=== PATIENT | female | born 1955 | race Caucasian/White ===

== ENCOUNTER 2017-06-01 13:01 | Inpatient (IN) | payer BC ==
[~2017-06-01] VITALS: Ht 162.6 cm; Wt 98.0 kg
--- NOTE | ~2017-06-01 | 2DMMODE ---
[facility] [address] [place] [address] 2 D/M-MODE ECHOCARDIOGRAM Name: AMBROSE PEARSON Room #: 310-P [facility] IN ..#: [id number] Admission: 06/01/17 Attend Phys: Elizabeth Weaver Discharge: Date of : 53 Date of Service: 06/02/17 1031 Report #: [id number] THIS REPORT FOR: //name// APPROVED REPORT Study performed: 06/02/2017 08:31:01 EXAM: Comprehensive 2D, Doppler, and color-flow Echocardiogram Patient Location: Bedside Room #: 310 Status: stat Other Information Study Quality: Adequate Indications Syncope Chest Pain 2D Dimensions RVDd: 32.84 mm LVEF(%): 2.01 (>50%) IVSd: 9.92 (7-11mm) LVOT Diam: 19.58 (18-24mm) LVDd: 26.31 mm PWd: 31.93 (7-11mm) Ascending Ao: 33.82 (22-36mm) LVDs: 26.10 (25-40mm) Aortic Root: 32.28 mm Gonzalez's LVEF: 2.01 % Volumes Left Atrial Volume (Systole) Single Plane 4CH: 43.99 mL Single Plane 2CH: 60.51 mL LA ESV Index: 28.00 mL/m2 Aortic Valve AoV Peak Sarabjit.: 1.96 m/s AO Peak Gr.: 15.31 mmHg LVOT Max P.47 mmHg LVOT Max V: 1.62 m/s ODALYS Vmax: 2.49 cm2 Mitral Valve E/A Ratio: 0.6 MVA Planimetry: 1311.82 mm2 MV Decel. Time: 233.66 ms MV E Max Sarabjit.: 0.78 m/s MV A Sarabjit.: 1.22 m/s MV PHT: 67.76 ms [facility] [address] [place] [address] 2 D/M-MODE ECHOCARDIOGRAM Name: AMBROSE PEARSON Room #: 310-P [facility] IN ..#: [id number] Admission: 06/01/17 Attend Phys: Elizabeth Weaver Discharge: Date of : 53 Date of Service: 06/02/17 1031 Report #: [id number] IVRT: 101.50 ms Pulmonary Vein P Vein S: 0.70 m/s P Vein A: 0.34 m/s P Vein D: 0.38 m/s P Vein A Dur.: 133.8 msec P Vein S/D Ratio: 1.84 Tricuspid Valve TR Peak Sarabjit.: 1.99 m/s RAP Estimate: 5.00 mmHg TR Peak Gr.: 15.81 mmHg PA Pressure: 21.00 mmHg Shunt Evaluation QP/QS: 3.00 Left Ventricle The left ventricle is normal size. There is normal LV segmental wall motion. There is normal left ventricular wall thickness. The left ventricular systolic function is normal. The left ventricular ejection fraction is within the normal range. LVEF is 65%. Grade I - abnormal relaxation pattern. Right Ventricle The right ventricle is normal size. The right ventricular systolic function is normal. Atria The left atrium size is normal. The right atrium size is normal. Aortic Valve The aortic valve is normal in structure. Trace aortic regurgitation. There is no aortic valvular stenosis. Mitral Valve The mitral valve is normal in structure. There is no mitral valve regurgitation noted. No evidence of mitral valve stenosis. Tricuspid Valve The tricuspid valve is normal in structure. There is trace tricuspid regurgitation. The right atrial pressure is estimated at 5 mmHg. There is no pulmonary hypertension with an estimated PAP of 21 mmHg. Pulmonic Valve The pulmonary valve is normal in structure. There is no pulmonic [address] [address] 2 D/M-MODE ECHOCARDIOGRAM Name: AMBROSE PEARSON Room #: 310-P [facility] IN [facility]#: [id number] Admission: 06/01/17 Attend Phys: Elizabeth Weaver Discharge: Date of : 53 Date of Service: 06/02/17 1031 Report #: [id number] valvular regurgitation. Great Vessels The aortic root is normal in size. IVC is normal in size and collapses >50% with inspiration. Pericardium There is no pericardial effusion. <Conclusion> There is normal left ventricular wall thickness. The left ventricular systolic function is normal. The left ventricular ejection fraction is within the normal range. LVEF is 65%. Grade I - abnormal relaxation pattern. The left atrium size is normal. There is no aortic valvular stenosis. There is no mitral valve regurgitation noted. There is no pericardial effusion. <ELECTRONICALLY SIGNED> By: Rishabh Crouch MD, FACC 06/02/17 1031 1031 1031 Rishabh Crouch MD, FACC /INF
--- NOTE | ~2017-06-01 | EKG ---
[address] [address] ELECTROCARDIOGRAM REPORT Name: AMBROSE PEARSON Room #: 310-P ADM IN M.R.#: [id number] Admission: 06/01/17 Attend Phys: Remy Fox MD Discharge: Date of : 53 Report #: [id number] THIS REPORT FOR: //name// [facility] ED Test Date: 2017-06-01 Test Time: 13:13:07 Pat Name: AMBROSE PEARSON Department: Room: 310 Gender: F P[employer]: [id number] : [id number] Requested By: Matt Gonsalez Order Number: [id number] MD: Trevin Jade Measurements Intervals [place] Rate: 80 P: 20 WA: 180 QRS: -7 QRSD: 85 T: 85 QT: 380 QTc: 439 Interpretive Statements Sinus rhythm Inferior infarct, old Anterior infarct, old Compared to ECG 07/08/2008 11:33:59 Poor R-wave progression no longer present Electronically Signed On 06-02-2017 9:25:16 CDT by Trevin Jade [email or web address] <ELECTRONICALLY SIGNED> By: Trevin Jade MD 06/02/17 0925 1313 1313 Trevin Jade MD /GLENN
[2017-06-01 13:02] VITALS: BP 152/82
[2017-06-01] MEDS ORDERED: PAXIL20 MG PO (13:10)
[2017-06-01] MEDS ORDERED: WELLBUTRIN 100100 MG PO (13:10)
[2017-06-01] MEDS ORDERED: VICTOZA0.6 MG/0.1 SUBQ (13:10)
[2017-06-01] MEDS ORDERED: METFORMIN HCL500 MG PO (13:10)
[2017-06-01] MEDS ORDERED: TOPROL XL100 MG PO (13:11)
[2017-06-01] MEDS ORDERED: ZOCOR20 MG PO (13:11)
[2017-06-01] MEDS ORDERED: LISINOPRIL10 MG PO (13:11)
[2017-06-01] MEDS ORDERED: ASPIR 8181 MG PO (13:12)
[2017-06-01] MEDS ORDERED: B12INJ IM (13:12)
[2017-06-01] MEDS ORDERED: VITAMIN D31000 UNI2 PO (13:12)
[2017-06-01 13:19] LABS: ABSOLUTE NEUTROPHILS 8.7 thou/uL (1.4-8.2); BASOPHILS 0.7 % (0.0-2.0); EOSINOPHILS 4.6 % (0.0-3.0); HEMATOCRIT 44.9 % (37.0-47.0); HEMOGLOBIN 15.7 gm/dL (12.0-15.0); LYMPHOCYTES 20.8 % (24.0-44.0); MANUAL DIFF NO; MCH 29.3 pg (26.0-34.0); MCHC 34.9 g/dL (28.0-37.0); MCV 83.9 fL (80.0-100.0); MONOCYTES 7.2 % (1.0-8.0); PLATELET COUNT 419 thou/uL (150-400); POLYS 66.7 % (36.0-66.0); RBC 5.36 mil/uL (4.20-5.00); RDW 12.5 % (10.5-14.5); WBC 13.1 thou/uL (4.0-11.0)
[2017-06-01 13:30] LABS: ANION GAP 15 mmol/L (7-16); BUN 20 mg/dL (7-18); CALCIUM 10.9 mg/dL (8.5-10.1); CHLORIDE 98 mmol/L (98-107); CO2 20 mmol/L (21-32); CREATININE 0.9 mg/dL (0.6-1.0); GLUCOSE 207 mg/dL (74-106); POTASSIUM 4.4 mmol/L (3.5-5.1); SODIUM 133 mmol/L (136-145)
[2017-06-01 13:43] LABS: NT-PRO BRAIN NAT PEPTIDE 91 pg/mL (<300); TROPONIN-I < 0.04 ng/mL (<0.04-0.07)
[2017-06-01 14:51] VITALS: BP 98/65
[2017-06-01 15:44] VITALS: BP 118/64
[2017-06-01 16:19] VITALS: BP 129/76
[2017-06-01 20:15] VITALS: BP 143/72
[2017-06-02] VITALS (8 sets, daily range): BP systolic 122–157; BP diastolic 64–80
[2017-06-02 04:57] LABS: CALCIUM 9.2 mg/dL (8.5-10.1); CREATININE 0.9 mg/dL (0.6-1.0); POTASSIUM 3.9 mmol/L (3.5-5.1); TOTAL BILIRUBIN 0.4 mg/dL (<0.1-1.0); TOTAL PROTEIN 6.6 g/dL (6.4-8.2)
[2017-06-02 09:00] LABS: ABSOLUTE NEUTROPHILS 4.8 thou/uL (1.4-8.2); BASOPHILS 0.8 % (0.0-2.0); EOSINOPHILS 4.9 % (0.0-3.0); HEMATOCRIT 39.5 % (37.0-47.0); LYMPHOCYTES 33.2 % (24.0-44.0); MCH 29.1 pg (26.0-34.0); MCV 85.6 fL (80.0-100.0); MONOCYTES 8.2 % (1.0-8.0); POLYS 52.9 % (36.0-66.0); RBC 4.61 mil/uL (4.20-5.00); RDW 12.4 % (10.5-14.5); WBC 9.1 thou/uL (4.0-11.0)
[2017-06-02 09:03] LABS: HEMOGLOBIN 13.4 gm/dL (12.0-15.0); MANUAL DIFF NO; PLATELET COUNT 338 thou/uL (150-400)
[2017-06-03 04:00] VITALS: BP 136/67
[2017-06-03 05:46] LABS: CALCIUM 9.6 mg/dL (8.5-10.1); CREATININE 0.8 mg/dL (0.6-1.0); POTASSIUM 4.4 mmol/L (3.5-5.1)
[2017-06-03 07:43] VITALS: BP 179/99
[2017-06-03 09:39] VITALS: BP 179/99
== END 2017-06-03 14:10 | disposition home or self-care (01) | DRG 641 ==
LOC: ER 13:01 → EROBS 14:19 → 3N 14:19
PROVIDERS: Emergency Medicine; Family Medicine
DX: E86.1 Hypovolemia (principal); E87.1 Hypo-osmolality and hyponatremia; E86.0 Dehydration; E78.5 Hyperlipidemia, unspecified; I10 Essential (primary) hypertension; E11.9 Type 2 diabetes mellitus without complications; R94.31 Abnormal electrocardiogram [ECG] [EKG]; D72.829 Elevated white blood cell count, unspecified; F41.9 Anxiety disorder, unspecified; F32.9 Major depressive disorder, single episode, unspecified; Z79.4 Long term (current) use of insulin; Z90.49 Acquired absence of other specified parts of digestive tract; Z90.710 Acquired absence of both cervix and uterus; Z88.6 Allergy status to analgesic agent
CPT/HCPCS: 10096